=== PATIENT | female | born 1985 | race Caucasian/White ===

== ENCOUNTER 2017-01-03 10:43 | Inpatient (IN) | payer OTHER ==
[~2017-01-03] VITALS: Ht 167.6 cm; Wt 86.3 kg
[2017-01-03] MEDS ORDERED: PREN1TAB69 PO (10:50)
[2017-01-03] MEDS ORDERED: NEWBORN KIT ONE (10:57)
[2017-01-03] MEDS ORDERED: OXYTOCIN 30U/ 0.9% NaCL 500ML 500 ML ONE ×2 (10:57→16:08)
[2017-01-03] MEDS ORDERED: LIDOCAINE 1%, 20ML ONE (10:57)
[2017-01-03] MEDS ORDERED: MISOPROSTOL 200 MCG TABLET ONE (10:57)
[2017-01-03 11:22] VITALS: BP 137/91
[2017-01-03] MEDS ORDERED: LACTATED RINGERS 1,000 ML IV SCH (11:38)
[2017-01-03] MEDS ORDERED: OXYTOCIN 30U/ 0.9% NaCL 500ML 500 ML IV ONE (11:38)
[2017-01-03] MEDS ORDERED: SODIUM CHLORIDE FLUSH 10ML SYR IVF PRN (12:00)
[2017-01-03] MEDS ORDERED: CALCIUM CARBONATE 500 MG TAB.CHEW PO PRN (12:00)
[2017-01-03] MEDS ORDERED: ONDANSETRON 2MG/ML, 2ML IVPush PRN (12:00)
[2017-01-03] MEDS ORDERED: FENTANYL PF 100 MCG/2ML IVPush PRN (12:00)
[2017-01-03] MEDS ORDERED: ACETAMINOPHEN 325 MG TABLET PO PRN (14:30)
[2017-01-03] MEDS ORDERED: DOCUSATE 100 MG CAPSULE PO PRN (14:30)
[2017-01-03] MEDS ORDERED: ONDANSETRON 2MG/ML, 2ML IV PRN (14:30)
[2017-01-03] MEDS ORDERED: MISOPROSTOL 200 MCG TABLET PO PRN (14:30)
[2017-01-03] MEDS ORDERED: OXYcodone/APAP 5/325MG TABLET PO PRN ×2 (14:30)
[2017-01-03] MEDS ORDERED: IBUPROFEN 800 MG TABLET PO PRN (14:30)
[2017-01-03] MEDS ORDERED: IBUPROFEN 600 MG TABLET ONE (14:52)
[2017-01-03] MEDS: OXYTOCIN 30U/ 0.9% NaCL 500ML 500 ML IV SCH ×2 (16:35→18:54)
[2017-01-03] MEDS ORDERED: IBUPROFEN 200 MG TABLET PO ONE (17:00)
[2017-01-03 18:15] VITALS: BP 139/86
[2017-01-03 20:00] VITALS: BP 127/76
[2017-01-04 08:10] VITALS: BP 136/88
[2017-01-04] MEDS ORDERED: PRENATAL VIT/IRON/FA 1 EACH TABLET PO SCH (09:00)
[2017-01-04] MEDS: OXYTOCIN 30U/ 0.9% NaCL 500ML 500 ML IV SCH (10:29)
== END 2017-01-04 15:50 | disposition home or self-care (01) | DRG 775 ==
LOC: LDOP 10:43 → LDIP 10:58 → 2NW 18:02
PROVIDERS: ADMIT Specialist; ATTEND Specialist
PROC: 10E0XZZ Delivery of Products of Conception, External Approach (ICD-10-PCS; principal; 2017-01-03)
PROC: 3E0334Z Introduction of Serum, Toxoid and Vaccine into Peripheral Vein, Percutaneous Approach (ICD-10-PCS; 2017-01-04)
DX: O48.1 Prolonged pregnancy (principal); O76 Abnormality in fetal heart rate and rhythm complicating labor and delivery; Z37.0 Single live birth; O26.893 Other specified pregnancy related conditions, third trimester; Z67.41 Type O blood, Rh negative; Z3A.41 41 weeks gestation of pregnancy; Z88.5 Allergy status to narcotic agent
CPT/HCPCS: 36415; 85025; 85461; 86850; 86900; J2790; J2590